=== PATIENT | male | born 1945 | race Caucasian/White ===

== ENCOUNTER 2020-03-12 09:43 | Emergency (ER) | payer MEDICARE, SELFPAY ==
--- NOTE | ~2020-03-12 | XR_ITS ---
EXAMINATION: XR chest 1V portable INDICATION: Shortness of breath, COVID 19 positive TECHNIQUE: Portable AP chest at 1026 hours COMPARISON: 09/08/2007 FINDINGS: There are patchy bilateral airspace opacities, worst in the right upper and lower lung zone s. No pleural effusion or pneumothorax is identified. The cardiomediastinal silhouette is normal. 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 IMPRESSION: 1. Patchy bilateral airspace opacities in a distribution consistent with COVID 19 pneumonia. Reviewed, dictated and finalized at location A.
[2020-03-12 09:58] VITALS: BP 143/105; PULSE 70; RESP 20; O2SAT 96
[2020-03-12 10:04] VITALS: PULSE 71
[2020-03-12 10:15] VITALS: BP 128/92; PULSE 75; RESP 20; O2SAT 96
--- NOTE | 2020-03-12 10:15 | ECG_ITS ---
Measurements Intervals [place] Rate: 74 P: 14 [place]: 161 QRS: -19 QRSD: 108 T: 12 QT: 387 QTc: 432 Interpretive Statements SINUS RHYTHM VENTRICULAR PREMATURE COMPLEX VOLTAGE CRITERIA FOR LVH CONSIDER HIGH LATERAL INFARCT, AGE INDETERMINATE BORDERLINE T WAVE ABNORMALITY- INFERIOR LEADS ABNORMAL ECG Electronically Signed On 03-12-2020 13:01:17 CDT by Gus Snyder D.O.
[2020-03-12 10:30] LABS: Basophils Absolute Auto 0.1 K/mm3 (0.0-0.1); Basophils Percent Auto 0.6 % (0.2-1.2); Eosinophils Absolute Auto 0.1 K/mm3 (0-0.3); Hematocrit 48.9 % (42.0-52.0); Hemoglobin 17.3 g/dL (14.0-18.0); Immature Granulocyte Absolute 0.59 K/mm3 (0.00-0.031); Immature Granulocyte Percent A 5.5 % (0-0.5); Lymphocytes Absolute Auto 1.33 K/mm3 (0.9-3.2); Lymphocytes Percent Auto 12.4 % (18.3-44.2); Mean Corpuscular HGB Conc 35.4 g/dl (32-36); Mean Corpuscular Volume 84.9 fl (80-100); Monocytes Absolute Auto 1.8 K/mm3 (0.1-0.6); Monocytes Percent Auto 16.4 % (2.6-8.5); Neutrophils Absolute Auto 6.9 K/mm3 (1.3-6.7); Neutrophils Percent Auto 64.1 % (45.5-73.1); Platelet Count Result 272 k/mm3 (150-375); Red Blood Count 5.76 M/mm3 (4.6-6.20); Red Cell Distribution Width 13.3 % (11.5-14.5); White Blood Count 10.7 K/mm3 (4.5-10.0)
[2020-03-12 10:41] LABS: INR 1.1; Prothrombin Time 14.2 Seconds (11.1-14.7)
[2020-03-12 10:42] LABS: Partial Thromboplastin Time 25.4 SECONDS (22.3-36.8)
[2020-03-12 10:45] LABS: Alanine Aminotransferase 23 U/L (4-50); Albumin Level 3.5 g/dL (3.5-5.1); Alkaline Phosphatase 77 U/L (38-126); Anion Gap 7 mmol/L (8-16); Aspartate Amino Transferase 22 U/L (17-59); Bilirubin,Total 1.1 mg/dL (0.2-1.3); Blood Urea Nitrogen 22 mg/dL (9-20); CRP 0.7 mg/dL (<1.0); Calcium 9.7 mg/dL (8.4-10.2); Carbon Dioxide 25 mmol/L (22-30); Chloride 100 mmol/L (98-107); Estimated CRCL calculation 73 ml/min; Estimated Glomerular Filt Rate > 60; Glucose 193 mg/dL (75-110); Potassium 4.2 mmol/L (3.4-5.0); Sodium 132 mmol/L (137-145)
[2020-03-12 10:51] LABS: Alveolar/Arterial O2 Gradient 36.9 mmHg; Base Excess ABG 1.6 mEq/l (+/-2.0); Fractional Inspired Oxygen 21 %; Methemoglobin ABG 0.3 %THb (0-1.5); Oxygen Content ABG 22.7 %vol (16.0-22.0); Oxygen Saturation ABG 96.1 % (95.0-100.0); Oxyhemoglobin 94.4 % THb (90.0-100.0); PCO2 ABG 32.2 mmHg (35.0-45.0); PO2 ABG 74.3 mmHg (80.0-100.0); PO2 FiO2 Ratio Arterial Blood 3.54 %; Reduced Hemoglobin 4.3 %THb (0-5.0); Total Hemoglobin 17.1 g/dL (12.0-18.0); pH ABG 7.491 (7.350-7.450)
[2020-03-12 10:52] LABS: Device ROOM AIR; Site Drawn LEFT BRACHIAL
[2020-03-12 10:59] VITALS: BP 135/90; PULSE 65; RESP 20; O2SAT 97
[2020-03-12] MEDS: SODIUM CHLORIDE 0.9% IV 1,000 ML 999 ML IV CONT (10:59)
[2020-03-12] MEDS: FAMOTIDINE 20 MG/2 ML VIAL IV PUSH (11:00)
--- NOTE | 2020-03-12 11:00 | ED.SOB ---
HPI - SOB/Dyspnea General Chief Complaint: Shortness of Breath/Dyspnea <DAMON Glass Last Filed: 03/12/20 12:37> Stated Complaint: covid positive on 02/18/2020/ sob <DAMON Glass Last Filed: 03/12/20 12:37> Time Seen by Provider: 03/12/20 10:12 <DAMON Glass Last Filed: 03/12/20 12:37> Source: patient and family <DAMON Glass Last Filed: 03/12/20 12:37> Mode of arrival: ambulatory <DAMON Glass Last Filed: 03/12/20 12:37> Limitations: no limitations <DAMON Glass Last Filed: 03/12/20 12:37> History of Present Illness HPI Narrative: Patient is a 74-year-old male who presents with dyspnea and fatigue patient has been sick for over 10 days with COVID-19 had recent hospitalization was discharged and has been at home on Augmentin and Zithromax and using his inhaler but notes that he continues to have fatigue and dyspnea which worsens with activity. Patient also has sick family members at home <DAMON Glass Last Filed: 03/12/20 12:37> Related Data Home Medications: Home Medications Medication Instructions Recorded Confirmed amoxicillin-pot clavulanate 1 tablet PO Q12H 03/12/20 03/12/20 [Augmentin] azithromycin 250 mg PO DAILY 03/12/20 03/12/20 coenzyme Q10 150 mg PO DAILY 03/12/20 03/12/20 dexamethasone 6 mg PO DAILY 03/12/20 03/12/20 indapamide 2.5 mg PO DAILY 03/12/20 sitagliptin-metformin [Janumet] 1 tablet PO BID 03/12/20 03/12/20 <DAMON Glass Last Filed: 03/12/20 12:37> Allergies/Adverse Reactions: Allergies Allergy/AdvReac Type Severity Reaction Status Date / Time ezetimibe AdvReac Intermediate shortness Verified 03/12/20 10:06 of breath <DAMON Glass Last Filed: 03/12/20 12:37> Review of Systems Review of Systems: All systems reviewed & are unremarkable except as noted in HPI and below <Steven Torres PA-C - Last Filed: 03/12/20 12:37> [facility] Past Medical History Medical History: Medical History (Updated 03/12/20 @ 12:32 by Steven Torres PA-C) Chronic obstructive pulmonary disease, unspecified Hypertensive heart disease Type 2 diabetes mellitus without complications <Steven Torres PA-C - Last Filed: 03/12/20 12:37> Social History Social History: Social History Smoking status: Former smoker Second hand tobacco smoke exposure: No Alcohol intake: never Gender identity (if verbalized by the patient): Male <Steven Torres PA-C - Last Filed: 03/12/20 12:37> Exam Narrative: Exam Narrative: GENERAL: Well-appearing, well-nourished, and in no acute distress. HEAD: Normocephalic, atraumatic. EYES: PERRLA and EOMI. ENT: Nares clear, no rhinorrhea or epistaxis. Mucous membranes moist. Oropharynx without tonsillar hypertrophy exudate or other lesions. NECK: Supple. No adenopathy or masses. CHEST: Clear to auscultation. No respiratory distress. No wheezes rales or rhonchi HEART: Regular rate and rhythm. No murmur heard. Normal peripheral pulses. ABDOMEN: Soft, nontender, nondistended EXTREMITIES: Normal range of motion. No edema. SKIN: Warm, dry, no rash. NEURO: No focal deficits. Alert and oriented x3. PSYCH: Normal mood and affect. <Steven Torres PA-C - Last Filed: 03/12/20 12:37> Course Course Emergency Course: Patient in the room at this time resting comfortably was hydrated given medications patient on exertion had his oximetry go down to 92. Patient's case was discussed with the hospitalist who recommends that this patient does not warrant hospitalization this time given the findings and recommends that the patient be sent home. Patient will be sent home as recommended by the hospitalist service patient was hydrated is noted and given an MDI instruct. <Steven Torres PA-C - Last Filed: 03/12/20 12:37> Consultations Consultati
[2020-03-12 11:03] LABS: Lactic Acid Reflex 1.1 mmol/L (0.7-2.1)
[2020-03-12 12:23] VITALS: BP 125/82; PULSE 78; RESP 20; O2SAT 92
== END 2020-03-12 13:00 | disposition home or self-care (01) ==
PROVIDERS: Emergency Medicine Emergency Medical Services; Emergency Provider Emergency Medicine; PCP Internal Medicine
DX: U07.1 COVID-19 (principal); J12.89 Other viral pneumonia; J44.9 Chronic obstructive pulmonary disease, unspecified; E11.9 Type 2 diabetes mellitus without complications; I11.9 Hypertensive heart disease without heart failure; Z79.84 Long term (current) use of oral hypoglycemic drugs
CPT/HCPCS: 36415; 36600; 71045; 80053; 82375; 82728; 82805; 83050; 83605; 85025; 85610; 85730; 86140; 87040; 93005; 96361; 96374; 96375; 99284; J0131; J7030

== ENCOUNTER 2020-08-04 10:47 | Outpatient (CLI) | payer MEDICARE, SELFPAY ==
--- NOTE | ~2020-08-04 | XR_ITS ---
XR abdomen obstructive series DATE: 08/04/2020 11:00 INDICATION: Abdominal pain TECHNIQUE: Supine and upright AP views COMPARISON: 09/08/2007 CT abdomen pelvis FINDINGS: Diffuse idiopathic skeletal hyperostosis of the thoracic spine. Diffuse osteopenia. Status post cholecystectomy. No visceromegaly is evident. No significant abnormal calcification is noted. No evidence of bowel obstruction or intraperitoneal free air. IMPRESSION: No evidence of bowel obstruction or intraperitoneal free air Reviewed, dictated and finalized at Location A. Reviewed, dictated and finalized at location A. ET COORDINATOR
== END 2020-08-04 10:48 | disposition home or self-care (01) ==
LOC: ANHIMG 10:49
PROVIDERS: Family Provider Internal Medicine; PCP Internal Medicine; Visit Provider Internal Medicine
DX: R10.9 Unspecified abdominal pain (principal)
CPT/HCPCS: 74019

== ENCOUNTER 2021-03-14 10:09 | Outpatient (CLI) | payer MEDICARE, SELFPAY ==
--- NOTE | ~2021-03-14 | CT_ITS ---
EXAMINATION: CTA chest EXAM DATE: 03/14/2021 10:55 INDICATION: Hypertension. Diabetes. TECHNIQUE: Spiral CT angiogram of the chest following intravenous injection of 100 mL Omnipaque 350. Axial, coronal and sagittal images of the chest were reviewed. Coronal maximum intensity pixel imag es of chest reviewed. Maximum intensity projection 3-D reconstructions of the aorta were created by willy cifuentes technologist on dedicated workstation. The dose-length product (DLP) for this examination was 968 .30 mGy-cm. The exposure was tailored according to patient size (auto mA exposure control), and iter ative reconstruction (ASIR) was used as additional dose reduction technique. Correlation is made to [facility] x[facility] 03/12/2020. FINDINGS: Mildly aneurysmal ascending aorta up to 4.6 cm. No dissection. No central pulmonary emboli. Mosaic attenuation, most likely regions of air trapping from small airway disease. Right basilar ate lectasis or scarring and trace pleural effusion. Tracheobronchial tree is patent. There is no medi astinal, hilar or axillary lymphadenopathy. There is no pneumothorax. Heart normal in size. The re is moderate coronary arterial calcification, arterial sclerosis. Hepatic steatosis. Cholecystecto my clips. There is thoracic spondylosis without osteoblastic or osteolytic lesions identified. Patie nt has diffuse idiopathic skeletal hyperostosis (DISH). IMPRESSION: 1. Mildly aneurysmal ascending aorta. 2. Mosaic attenuation probably air trapping. 3. Right basilar subsegmental atelectasis or scarring. 4. Trace right pleural effusion. 5. Hepatic steatosis. Reviewed, dictated and finalized at location A.
[2021-03-14 10:46] LABS: Estimated Glomerular Filt Rate 49
== END 2021-03-14 10:10 | disposition home or self-care (01) ==
PROVIDERS: PCP Nurse Practitioner Family; Visit Provider Internal Medicine Cardiovascular Disease
DX: E11.59 Type 2 diabetes mellitus with other circulatory complications (principal); I10 Essential (primary) hypertension; I71.2 Thoracic aortic aneurysm, without rupture; R91.8 Other nonspecific abnormal finding of lung field; J90 Pleural effusion, not elsewhere classified; K76.0 Fatty (change of) liver, not elsewhere classified
CPT/HCPCS: 71275; Q9967

== ENCOUNTER → 2021-07-26 01:56 | Outpatient (CLI) | payer MEDICARE, SELFPAY ==
[2021-07-26 21:12] LABS: SARS-CoV-2 RNA PCR Negative
== END ==
PROVIDERS: PCP Family Medicine; Visit Provider Family Medicine
DX: J20.9 Acute bronchitis, unspecified (principal); Z20.822 Contact with and (suspected) exposure to COVID-19
CPT/HCPCS: C9803; U0003; U0005

== ENCOUNTER 2022-03-12 09:38 | Outpatient (CLI) | payer MEDICARE, SELFPAY ==
--- NOTE | ~2022-03-12 | CT_ITS ---
EXAMINATION: CTA chest DATE: 03/12/2022 10:38 INDICATION: Thoracic aortic aneurysm without rupture TECHNIQUE: Computed tomographic angiography (CTA) of the chest was performed with 100 mL Omnipque-350 intravenous contrast. Maximum intensity projection 3D-reconstructions of the aorta and other arterie s were constructed by the technologist on a separate workstation. The dose-length product (DLP) was 6 49.15 mGy-cm. Automated exposure control and iterative reconstruction technique were employed. COMPARISON: 03/14/2021 FINDINGS: There is fusiform enlargement of the thoracic aorta which measures 4.3 x 4.2 cm at the leve l of the main pulmonary artery. The ascending aorta measures 3.8 x 3.5 cm at the sinuses of Valsalva. There is no dissection of the thoracic aorta. There is mild dependent atelectasis. No focal airspace opacities are identified. There is a chronic trace right pleural effusion. There is no pneumothorax. No pathologically enlarged thoracic lymph nodes are identified. The heart size is normal. The gallbl adder is surgically absent. The liver is diffusely low in attenuation when compared with the spleen, consistent with hepatic steatosis. There are bridging osteophytes at multiple levels in the spine, co nsistent with diffuse idiopathic skeletal hyperostosis (DISH). IMPRESSION: 1. Stable fusiform enlargement of the thoracic aorta measuring up to 4.3 cm. No dissection. Reviewed, dictated and finalized at location B.
[2022-03-12 10:28] LABS: Estimated Glomerular Filt Rate 49
== END 2022-03-12 09:39 | disposition home or self-care (01) ==
PROVIDERS: PCP Nurse Practitioner Family; Visit Provider Internal Medicine Cardiovascular Disease
DX: I71.2 Thoracic aortic aneurysm, without rupture (principal)
CPT/HCPCS: 71275; Q9967

== ENCOUNTER 2024-04-14 10:00 | Outpatient (CLI) | payer MEDICARE, SELFPAY ==
--- NOTE | ~2024-04-14 | CT_ITS ---
EXAMINATION: CTA chest DATE: 04/14/2024 10:36 INDICATION: Aneurysm of ascending aorta without rupture. TECHNIQUE: Computed tomographic angiography (CTA) of the chest was performed with 100 mL Omnipaque-35 0 intravenous contrast. Automated exposure control and iterative reconstruction technique were employ ed. The dose-length product was 1046.74 mGy-cm. Maximum intensity projection 3D-reconstructions of th e aorta and other arteries were constructed by the technologist on a separate workstation. COMPARISON: CT 03/12/22 FINDINGS: The lungs demonstrate mild atelectasis. There is mild emphysema. There is a stable 4 mm nod ule in right lower lobe, likely benign. There is a 3 mm nodule in left lower lobe, likely benign. The re are a few new nodules in the lungs measuring up to 6 mm in left lower lobe. No pleural effusion. T here is left atrial enlargement of the heart. There are coronary artery calcifications. No pericardia l effusion. Thoracic aorta measures 4.2 cm at the sinuses of Valsalva, 3.2 cm at the sinotubular junc tion, 4.0 cm in the mid ascending aorta, 3.0 cm at the isthmus, and 2.6 cm in the mid descending aort a. There are changes of cholecystectomy. There is cortical thinning of the kidneys. There are cysts i n the kidneys measuring up to 1.5 cm on the right. There are bridging endplate osteophytes at multipl e levels in the spine, consistent with diffuse idiopathic skeletal hyperostosis (DISH). IMPRESSION: 1. Stable ectasia of ascending aorta measuring up to 4.2 cm. 2. New pulmonary nodules measuring up to 6 mm, probably benign. Consider noncontrast low-dose chest C T in 6 months. 3. Mild emphysema. Reviewed, dictated and finalized at location A. IMPRESSION: 1. Stable ectasia of ascending aorta measuring up to 4.2 cm. 2. New pulmonary nodules measuring up to 6 mm, probably benign. Consider noncon trast low-dose chest CT in 6 months. 3. Mild emphysema.
[2024-04-14 10:27] LABS: Estimated Glomerular Filt Rate 49
== END 2024-04-14 10:01 | disposition home or self-care (01) ==
PROVIDERS: PCP Nurse Practitioner Family; Visit Provider Internal Medicine Cardiovascular Disease
DX: I77.819 Aortic ectasia, unspecified site (principal); J43.9 Emphysema, unspecified; R91.8 Other nonspecific abnormal finding of lung field
CPT/HCPCS: 71275; Q9967

== ENCOUNTER 2024-10-29 08:57 | Outpatient (CLI) | payer MEDICARE, SELFPAY ==
--- NOTE | ~2024-10-29 | CT_ITS ---
CT Scan of the Chest without Contrast: Clinical Indication: Pulmonary nodule Technique: Contiguous sections were acquired throughout the chest without intravenous contrast. Dose reduction technique was used on this scan by utilizing automated exposure control and iterative recon struction technique. The dose-length product (DLP) was 595.73 mGy-cm. COMPARISON: 04/14/2024 Findings: There is no evidence of any significant mediastinal, hilar or axillary lymphadenopathy. Coronary paresh ry calcifications are present. There is no evidence of pleural or pericardial effusion. Several subcentimeter left basilar pulmonary nodules are again present, similar to prior exam, larges t measuring 7 mm. There are subcentimeter nodules in the right lower lobe, measuring up to 4 mm. Ther e are areas of mild chronic interstitial change and mild groundglass the opacity bilaterally, similar to prior exam. Images through the upper abdomen reveal no abnormalities. Impression: Stable subcentimeter bibasilar pulmonary nodules, measuring up to 7 mm in diameter. Mild chronic interstitial changes and areas of mild groundglass opacity, essentially stable from prio r exam. Reviewed, dictated and finalized at location M. Impression: Stable subcentimeter bibasilar pulmonary nodules, measuring up to [address] Mild chronic interstitial changes and areas of mild groundglass opacity, essent ially stable from prior exam.
--- OUTSIDE RECORDS SUMMARY | 2024-10-29 09:09 | XMS_ITS | Referral Summary ---
Author Organization [facility] Address [address] [place] [id number] Care Team Providers Care Beauty Operator Name Role Phone Maco Main MD Primary Care Provider [phone] Encounters Date Type Department Care Team Description 10/18/2024 9:45 AM CDT Office Visit [facility] Cardiology [address] [place] [address] Ana Escudero MD History of DVT (deep vein thrombosis) (Primary Dx); Pulmonary nodule; Aneurysm of ascending aorta without rupture; Hypertension associated with diabetes (HCC); Mixed diabetic hyperlipidemia associated with type 2 diabetes mellitus (CMS/HCC) (HCC); Cardiomegaly from Last 3 Months Allergies Active Allergy Reactions Criticality Noted Date Comments Iaxqgke-Yld-Swk Reductase Inhibitors Muscle pain Medium 08/04/2020 Medications albuterol HFA (PROVENTIL HFA,VENTOLIN HFA,PROAIR HFA) 90 mcg/actuation inhaler INL 1 TO 4 PFS PO Q 4 H PRN 05/05/2019 Active rivaroxaban (XARELTO) 10 mg tablet Take 1 tablet (10 mg total) by mouth daily with dinner 02/15/2019 Active SITagliptin-metf ormin (JANUMET) 50-1,000 mg per tablet Take 1 tablet by mouth Active indapamide (LOZOL) 2.5 mg tablet 11/08/2019 Active docosahexaenoic acid-epa 120-180 mg capsule Take 1,000 mg by mouth 2 (two) times a day Active allopurinoL (ZYLOPRIM) 100 mg tablet 04/30/2021 Active ezetimibe (ZETIA) 10 mg tablet 04/16/2021 Active metoprolol XL (TOPROL-XL) 25 mg extended release tablet Take 1 tablet (25 mg total) by mouth daily Active colchicine (COLCRYS) 0.6 mg tablet TAKE 1 TABLET BY MOUTH TWICE DAILY NEEDED FOR GOUT 01/17/2022 Active lisinopriL (PRINIVIL,ZESTRI L) 10 mg tablet TAKE 1 TABLET BY MOUTH DAILY 100 tablet 2 08/12/2023 Active Active Problems Problem Noted Date Diagnosed Date Pulmonary nodule 10/18/2024 History of DVT (deep vein thrombosis) 04/12/2024 Hypertension associated with diabetes 08/04/2020 Tobacco abuse 08/04/2020 Thoracic aortic aneurysm without rupture ([facility]/HC C) 08/04/2020 Cardiomegaly 08/04/2020 Mixed diabetic hyperlipidemi a associated with type 2 diabetes mellitus ([facility]/HCC) 08/04/2020 Statin myopathy 08/04/2020 Social History Tobacco Use Types Packs/Day Years Used Date Smoking Tobacco: Former Smokeless Tobacco: Current Chew Alcohol Use Standard Drinks/Week Comments Yes 0 (1 standard drink = 0.6 oz pur e alcohol) Sex and Gender Information Value Date Recorded Sex Assigned at Not on file Legal 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 Gender Identity Not on file Sexual Orientation Not on file Last Filed Vital Signs Vital Sign Reading Time Taken Comments Blood Pressure 114/70 10/18/2024 9:33 AM CDT Pulse 65 10/18/2024 9:33 AM CDT Temperature 36.6 C (97.8 F) 08/16/2020 1:54 PM TAX CONSULTANT Respiratory Rate - - Oxygen Saturation 97% 10/18/2024 9:33 AM CDT Inhaled Oxygen Concentration - - Weight 108.5 kg (239 lb 4.8 oz) 10/18/2024 9:33 AM CDT Height 182.9 cm (6') 10/18/2024 9:33 AM CDT Body Mass Index 32.45 10/18/2024 9:33 AM CDT Plan of Treatment Not on file Procedures Procedure Name Priority Date/Time Associated Diagnosis Comments POCT LIPID PANEL Routine 04/12/2024 9:15 AM CDT Mixed diabetic hyperlipidemia associated with type 2 diabetes mellitus (CMS/HCC) (HCC) from Last 3 Months or Most Recently Relevant to Health Maintenance Results * POCT lipid panel (04/12/2024 9:15 AM CDT) Cholesterol, POC 182 mg/dL Comment:GLU = 243 HDL, POC 22 mg/dL Triglycerides, POC 226 mg/dL LDL Cholesterol POC 115 mg/dL Chol/HDL Ratio, POC 5.3 Non-HDL Cholesterol, POC 160 mg/dL Cholesterol Total, POC 182 mg/dL Capillary blood 04/12/2024 9 :15 AM CDT us Ana Escudero MD POINT OF CARE TEST O RDERABLES Final Result from Last 3 Months or Most Recently Relevant to Health Maintenance Insurance MEDICARE ADVANTAGE MEDICARE ADVANTAGE Care Teams Beauty Operator Relationship Specialty Start Date End Date Maco Main MD [address] [address] PCP - General Family Medicine 02/15/21
--- OUTSIDE RECORDS SUMMARY | 2024-10-29 09:09 | XMS_ITS | Clinical Summary ---
Author Organization [facility] Address [address] [place] [address] Care Team Providers Care Senior Dynamics Crm Developer Name Role Phone Gonzalo Chen MD Primary Care Provider [phone] Source Comments [facility],non-owned Affiliates and Associated Physician Practices is amultiple site organization consisting of ambulatory clinics and hospital sitesin [place], [place], [place] and [place]. This disclosure is being madepursuant to the Care Everywhere program and may not contain all information available regarding this patient. Last updated 18.[facility] Allergies No known active allergies Medications * Be aware that medications may not be up to date on this document. Alwaysverify current medications with the patient. albuterol HFA (PROVENTIL;VENT ALEXUS;PROAIR) 108 (90 Base) MCG/ACT inhaler Inhale 2 puffs by mouth every 6 hours as needed Active SITagliptin-met FORMIN (JANUMET) 50-1000 MG tabletIndicatio ns:Type 2 Diabetes Mellitus Take 1 tablet by mouth 2 times daily with morning and evening meal Reasons: Type 2 Diabetes Active rivaroxaban (XARELTO) 20 MG tablet Take 1 tablet by mouth daily with dinner Begin taking after 21 days of 15mg tablets twice daily; start taking 20mg tablet once daily 02/15/19 30 tablet 02/15/2019 Active Active Problems Problem Noted Date Diagnosed Date Pulmonary embolus 01/23/2019 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 Encephalopathy 05/03/2015 Immunizations Immunization Administration Dates Next Due PNEUMOCOCCAL PPSV23 05/08/2015 Family History Medical History Relation Name Comments Heart Disease Mother Status: Deceas ed Relation Name Status Comments Mother Social History Tobacco Use Types Packs/Day Years Used Date Smoking Tobacco: Never Smokeless Tobacco: Current Alcohol Use Standard Drinks/Week Comments Yes 5.8 (1 standard drink = 0.6 oz p ure alcohol) Sex and Gender Information Value Date Recorded Sex Assigned at Not on file Legal Sex Male 6:02 PM A/C TECH Gender Identity Not on file Sexual Orientation Not on file Last Filed Vital Signs Vital Sign Reading Time Taken Comments Blood Pressure 117/65 01/25/2019 8:44 AM CDT Pulse 76 01/25/2019 8:44 AM CDT Temperature 36.7 C (98.1 F) 01/25/2019 8:44 AM CDT Respiratory Rate 18 01/25/2019 8:44 AM CDT Oxygen Saturation 97% 01/25/2019 8:44 AM CDT Inhaled Oxygen Concentration - - Weight 117.6 kg (259 lb 3.2 oz) 01/23/2019 6:04 PM CDT Height 182.9 cm (6') 01/23/2019 6:04 PM CDT Body Mass Index 35.15 01/23/2019 6:04 PM CDT Plan of Treatment Health Maintenance Due Date Last Done Comments DTAP/TDAP/TD VACCINES (1 - Tdap) 10/26/1963 ZOSTER VACCINE (1 of 2) 1994 PNEUMOCOCCAL VACCINE 50+ (2 of 2 - PCV) 05/08/2016 05/08/2015 Respiratory Syncytial Virus (RSV) Vaccine Pt: or over 60 yrs (1 - 1-dose 75+ series) 10/26/2019 COVID-19 VACCINE ( - 2023-2 5 season) 2024 DEPRESSION SCREENING 07/07/2024 INFLUENZA VACCINE (Season Ended) 2025 HEPATITIS B VACCINE Aged Out No longe r eligible based on patient's age to complete this topic HIB VACCINE Aged Out No longer eligi ble based on patient's age to complete this topic HPV VACCINE Aged Out No longer eligi ble based on patient's age to complete this topic MENINGOCOCCAL (Group B) VACC INE SHARED DECISION-MAKING Aged Out No longer eligibl e based on patient's age to complete this topic MENINGOCOCCAL GROUPS A/C/Y/W VACCINE Aged Out No longer eligible b ased on patient's age to complete this topic Insurance [facility] Address: [address] [facility] [address] [place] [address] Advance Directives * Full Code (Latest Code Status on File) Date Activated Date Inactivated Comments 01/23/2019 4:31 PM 01/25/2019 1:53 PM Care Teams Senior Dynamics Crm Developer Relationship Specialty Start Date End Date Gonzalo Chen MD [address] [place] [address] PCP - General 05/02/15
--- OUTSIDE RECORDS SUMMARY | 2024-10-29 09:09 | XMS_ITS | Clinical Summary ---
Author Organization [facility] Address [address] [place] [id number] Care Team Providers Care Fiscal Agent Name Role Phone Maco Main MD Primary Care Provider [phone] Allergies Active Allergy Reactions Criticality Noted Date Comments Bqejnfa-Nyd-Dty Reductase Inhibitors Muscle pain Medium 08/04/2020 Medications [...] abuse 08/04/2020 Thoracic aortic aneurysm without rupture (CMS/HC C) 08/04/2020 Cardiomegaly 08/04/2020 Mixed diabetic hyperlipidemi a associated with type 2 diabetes mellitus (CMS/HCC) 08/04/2020 Statin myopathy 08/04/2020 Encounters Date Type Department Care Team Description 10/18/2024 9:45 AM CDT Office Visit [facility] Cardiology [address] [place] [address] Ana Escudero MD History of DVT (deep vein thrombosis) (Primary Dx); Pulmonary nodule; Aneurysm of ascending aorta without rupture; Hypertension associated with diabetes (HCC); Mixed diabetic hyperlipidemia associated with type 2 diabetes mellitus (CMS/HCC) (HCC); Cardiomegaly from Last 3 Months Surgical History Surgery Date Site/Laterality Comments TONSILECTOMY, ADENOIDECTOMY, BILATERAL MYRINGOTOMY AND TUBES HERNIA REPAIR GALLBLADDER SURGERY PORT PLACEMENT CHEST >5 YEARS 05/08/2015 N/A PORT PLACEMENT CHEST >5 YEARS 05/08/2015 N/A Medical History Medical History Date Comments Hypertension Sinusitis Hyperlipidemia DM (diabetes mellitus) (HCC) Cataract Asthma Gout Family History Medical History Relation Name Comments Suicide Completion Father Relation Name Status Comments Father (Age 48) Mother (Age 95) Social History Tobacco Use Types Packs/Day Years Used Date Smoking Tobacco: Former Smokeless Tobacco: Current Chew Alcohol Use Standard Drinks/Week Comments Yes 0 (1 standard drink = 0.6 oz pur e alcohol) Sex and Gender Information Value Date Recorded Sex Assigned at Not on file Legal 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 Gender Identity Not on file Sexual Orientation Not on file Obstetrics History Last Filed Vital Signs Vital Sign Reading Time Taken Comments Blood Pressure 114/70 10/18/2024 9:33 AM CDT Pulse 65 10/18/2024 9:33 AM CDT Temperature 36.6 C (97.8 F) 08/16/2020 1:54 PM SYSTEM CONFIGURATION SPECIALIST Respiratory Rate - - Oxygen Saturation 97% 10/18/2024 9:33 AM CDT Inhaled Oxygen Concentration - - Weight 108.5 kg (239 lb 4.8 oz) 10/18/2024 9:33 AM CDT Height 182.9 cm (6') 10/18/2024 9:33 AM CDT Body Mass Index 32.45 10/18/2024 9:33 AM CDT Plan of Treatment Health Maintenance Due Date Last Done Comments Albumin Creatinine Ratio, Urine 1944 Depression Screening 1944 Fall Risk Assessment 1944 Hepatitis C Screening 1944 eGFR 1944 Dilated Eye Exam 1944 Foot Exam 1944 DTaP/Tdap/Td Vaccine (1 - Tdap) 10/26/1955 Hepatitis B Screening 1962 Zoster Vaccine (1 of 2) 1994 Abdominal Aortic Aneurysm (A AA) Screen 2009 Well Visit 65+ 2009 Pneumococcal vaccine 65+ (2 of 2 - PCV) 05/08/2016 05/08/2015 Hemoglobin A1C 07/27/2019 01/24/2019 Influenza Vaccine (Season Ended) 2025 Lipid Panel 07/29/2025 07/29/2024, 10/0 01/2024, 01/20/2024, Additional history exists Procedures Procedure Name Priority Date/Time Associated Diagnosis [...] Health Maintenance Insurance MEDICARE ADVANTAGE MEDICARE ADVANTAGE Member Subscriber Plan / Payer (Ef fective 2022-Present) Name:Jeff Ley Relation to Subscriber:Self Name:Jeff Ley Payer ID:[id number] (NAIC) Type:UHC MEDICARE Address: [place] [phone] Care Teams Fiscal Agent Relationship Specialty Start Date End Date Maco Main MD [address] [address] PCP - General Family Medicine 02/15/21
--- OUTSIDE RECORDS SUMMARY | 2024-10-29 09:09 | XMS_ITS | Clinical Summary ---
Author Organization [facility] Address Formerly [facility], [facility] [place] [address] Care Team Providers Care Stereotyper Apprentice Name Role Phone Eboni Portillo Primary Care Provider [phone] Allergies No known active allergies Medications lisinopril 40 MG tablet 20 mg. 11/08/2019 Active XARELTO 20 MG Tab tablet 12/16/2019 Active albuterol sulfate HFA 108 (90 Base) MCG/ACT inhaler INL 1 TO 4 PFS PO Q 4 H PRN 05/05/2019 Active SITagliptin-metF ORMIN HCl 50-1000 MG Tab Take 1 tablet by mouth. Active indapamide 2.5 MG tablet 11/08/2019 Active allopurinol 100 MG tablet 12/16/2019 Active fish oil (OMEGA-3 FATTY ACID) 1000 MG Cap capsule Take 1,000 mg by mouth 2 (two) times daily. Active coenzyme Q-10 150 MG capsule Take 150 mg by mouth daily. Active vitamin E 100 UNIT capsule Take 500 Units by mouth daily. Active Active Problems Problem Noted Date Diagnosed Date Pneumonia due to COVID-19 virus 03/05/2020 Encounters Date Type Department Care Team Description 10/18/2024 10:30 AM CDT - 10/18/2024 11:59 PM CDT Hospital Encounter [facility] [address] [place] [address] Peterson Perales MD Discharge Disposition: Home or Self Care (Routine Discharge) 10/18/2024 Travel 10/12/2024 8:10 PM CDT - 10/12/2024 11:59 PM CDT Hospital Encounter [facility] [address] [place] [address] Peterson Perales MD Discharge Disposition: Home or Self Care (Routine Discharge) 10/11/2024 9:04 AM CDT - 10/11/2024 11:59 PM CDT Hospital Encounter [facility] [address] [place] [address] Peterson Perales MD Discharge Disposition: Home or Self Care (Routine Discharge) 10/11/2024 Orders Only [place] [id number] [place] [address] Peterson Perales MD 10/11/2024 Travel 09/09/2024 9:45 AM OIL WELL PERFORATOR OPERATOR Laboratory Only [facility] [address] [place] [address] Salvador Peterson MD 09/09/2024 Travel from Last 3 Months Social History Tobacco Use Types Packs/Day Years Used Date Smoking Tobacco: Never Smokeless Tobacco: Current Chew Alcohol Use Standard Drinks/Week Comments Yes 10 (1 standard drink = 0.6 oz pu re alcohol) Sex and Gender Information Value Date Recorded Sex Assigned at Male 07/29/2024 8:54 AM OIL WELL PERFORATOR OPERATOR Legal Sex Male 11:05 PM CDT Gender Identity Not on file Sexual Orientation Not on file Last Filed Vital Signs Vital Sign Reading Time Taken Comments Blood Pressure 124/74 03/10/2020 9:17 AM CDT Pulse 71 03/10/2020 9:17 AM CDT Temperature 36.4 C (97.5 F) 03/10/2020 9:17 AM CDT Respiratory Rate 20 03/10/2020 3:00 AM CDT Oxygen Saturation 91% 03/10/2020 9:17 AM CDT Inhaled Oxygen Concentration - - Weight 112.1 kg (247 lb 2.2 oz) 03/06/2020 4:26 AM CDT Height 182.9 cm (6') 03/05/2020 11:00 PM CDT Body Mass Index 33.52 03/05/2020 11:00 PM CDT Plan of Treatment Health Maintenance Due Date Last Done Comments Diabetes: Retinopathy Eye Exam 1962 DTaP, Tdap and Td Vaccines (1 - Tdap) 10/26/1963 Zoster Vaccines (1 of 2) 1994 Annual Medicare Wellness Visit 2009 Pneumococcal Vaccine: 50+ Years (2 of 2 - PCV) 05/08/2016 05/08/2015 RSV Immunization or 60+ Years (1 - 1-dose 75+ series) 10/26/2019 COVID-19 Vaccine ( - 2023- season) 2024 Hemoglobin A1C 07/22/2024 01/20/2024, 0 03/2024, 03/06/2020, Additional history exists Kidney Health Evaluation 07/29/2025 07/29/2024 Lipid Panel 07/29/2025 07/29/2024, 100 01/2024, 01/20/2024, Additional history exists Meningococcal B Vaccine Aged Out No l onger eligible based on patient's age to complete this topic Meningococcal Vaccine Aged Out No jeovany tony eligible based on patient's age to complete this topic RSV Immunizations Under 20 Months Aged Out No longer eligible based on patient's age to complete this topic Procedures Procedure Name Priority Date/Time Associated Diagnosis Comments US RETROPERITONEAL LTD Routine 11:13 AM CDT Chronic kidney disease, stage 3a (CMS/HCC) Type 2 diabetes mellitus without complications (CMS/HCC HHS/HCC) Gout, unspecified Mixed hyperlipidemia UREA NITROGEN URINE 24 HR Routine 10/11/2024 8:00 PM CDT Chronic kidney disease, stage 3a (CMS/HCC) Diabetes mellitus without complication (CMS/HCC HHS/HCC) Essential (primary) hypertension Gout, unspecified Mixed hyperlipidemia IMMUNOFIXATION ELECTROPHORESIS URINE 24 HR Routine 10/11/2024 8:00 PM CDT Chronic kidney disease, stage 3a (CMS/HCC) Diabetes mellitus without complication (CMS/HCC HHS/HCC) Essential (primary) hypertension Gout, unspecified Mixed hyperlipidemia URINALYSIS, AUTO, COMPLETE Routine 10/11/2024 10:38 AM CDT Chronic kidney disease, stage 3a (CMS/HCC) Diabetes mellitus without complication (CMS/HCC HHS/HCC) Essential (primary) hypertension Gout, unspecified Mixed hyperlipidemia HC CREATININE OTH SOURCE Routine 10/11/2024 10:38 AM CDT Chronic kidney disease, stage 3a (CMS/HCC) Diabetes mellitus without complication (CMS/HCC HHS/HCC) Essential (primary) hypertension Gout, unspecified Mixed hyperlipidemia URIC ACID BLOOD Routine 10/11/2024 9:19 AM CDT Chronic kidney disease, stage 3a (CMS/HCC) Diabetes mellitus without complication (CMS/HCC HHS/HCC) Essential (primary) hypertension Gout, unspecified Mixed hyperlipidemia PTH - INTACT Routine 10/11/2024 9:19 AM CDT Chronic kidney disease, stage 3a (CMS/HCC) Diabetes mellitus without complication (CMS/HCC HHS/HCC) Essential (primary) hypertension Gout, unspecified Mixed hyperlipidemia SED RATE, ERYTHROCYTE (ESR) Routine 10/11/2024 9:19 AM CDT Chronic kidney disease, stage 3a (CMS/HCC) Diabetes mellitus without complication (CMS/HCC HHS/HCC) Essential (primary) hypertension Gout, unspecified Mixed hyperlipidemia CK (CPK) Routine 10/11/2024 9:19 AM CDT Chronic kidney disease, stage 3a (CMS/HCC) Diabetes mellitus without complication (CMS/HCC HHS/HCC) Essential (primary) hypertension Gout, unspecified Mixed hyperlipidemia KAPPA LAMBDA FREE RATIO (QST) Routine 10/11/2024 9:19 AM CDT Chronic kidney disease, stage 3a (CMS/HCC) Diabetes mellitus without complication (CMS/HCC HHS/HCC) Essential (primary) hypertension Gout, unspecified Mixed hyperlipidemia IMMUNOFIXATION Routine 10/11/2024 9:19 AM CDT Chronic kidney disease, stage 3a (CMS/HCC) Diabetes mellitus without complication (CMS/HCC HHS/HCC) Essential (primary) hypertension Gout, unspecified Mixed hyperlipidemia COMPLEMENT C3 Routine 10/11/2024 9:19 AM CDT Chronic kidney disease, stage 3a (CMS/HCC) Diabetes mellitus without complication (CMS/HCC HHS/HCC) Essential (primary) hypertension Gout, unspecified Mixed hyperlipidemia RENAL FUNCTION PANEL Routine 10/11/2024 9:19 AM CDT Chronic kidney disease, stage 3a (CMS/HCC) Diabetes mellitus without complication (CMS/HCC HHS/HCC) Essential (primary) hypertension Gout, unspecified Mixed hyperlipidemia COMPLEMENT C4 Routine 10/11/2024 9:19 AM CDT Chronic kidney disease, stage 3a (CMS/HCC) Diabetes mellitus without complication (CMS/HCC HHS/HCC) Essential (primary) hypertension Gout, unspecified Mixed hyperlipidemia COMPLEMENT, TOTAL (CH50) Routine 10/11/2024 9:19 AM CDT Chronic kidney disease, stage 3a (CMS/HCC) Diabetes mellitus without complication (CMS/HCC HHS/HCC) Essential (primary) hypertension Gout, unspecified Mixed hyperlipidemia CBC, AUTO, NO DIFF Routine 10/11/2024 9: 19 AM CDT Chronic kidney disease, stage 3a (CMS/HCC) Diabetes mellitus without complication (CMS/HCC HHS/HCC) Essential (primary) hypertension Gout, unspecified Mixed hyperlipidemia ANTINUCLEAR ANTIBODY WI RFX Routine 10/11/2024 9:19 AM CDT Chronic kidney disease, stage 3a (CMS/HCC) Diabetes mellitus without complication (CMS/HCC HHS/HCC) Essential (primary) hypertension Gout, unspecified Mixed hyperlipidemia PROSTATE SPECIFIC ANTIGEN,SCREENING Routine 09/09/2024 9:56 AM OIL WELL PERFORATOR OPERATOR LIPID PANEL Routine 07/29/2024 9:08 AM OIL WELL PERFORATOR OPERATOR Gout, unspecified Mixed hyperlipidemia Type 2 diabetes mellitus with diabetic neuropathy, unspecified (CMS/HCC HHS/HCC) Essential (primary) hypertension HEMOGLOBIN, GLYCOSYLATED Routine 01/20/2024 10:55 AM CDT Encounter for screening for malignant neoplasm of prostate Essential (primary) hypertension Diabetes mellitus without complication Mixed hyperlipidemia from Last 3 Months or Most Recently Relevant to Health Maintenance Results * [employer] (10/18/2024 11:13 AM CDT) Anatomical Region Laterality Modality Renal Ultrasound 10/18/2024 11:5 2 AM CDT Impressions 10/18/2024 11:54 AM CDT IMPRESSION: 1. No evidence of hydronephrosis or focal solid renal mass. Left-sided renal cysts. Ordered By: PETERSON PERALES Interpreted By: Vicky Kline, 10/18/2024 11:52 AM Narrative 10/18/2024 11:54 AM CDT [facility] [address] [place] [phone] IMAGING STUDIES: US RETROPERITONEAL LTD DATE: 10/18/2024 10:47 AM CLINICAL HISTORY: CKD . Diabetes. Gout. Hyperlipidemia. FINDINGS: RIGHT KIDNEY MEASURES 9.7 x 5.9 x 5.9 cm. LEFT KIDNEY MEASURES 10.7 x 5.8 x 4.7 cm. No evidence of hydronephrosis or focal solid renal mass. Renal cortical volume is well-maintained. Simple appearing cortical cyst off the mid and anterior left kidney. Measures 1.3 x 1.0 x 1.2 cm. Simple appearing cortical cyst off the inferior left kidney measuring 9.5 x 9.8 x 12.8 mm. 5.4 mm hyperechoic nonobstructing calculus within mid left renal collecting system. Low volume urinary bladder without focal mass. Bilateral ureteral jets noted. Procedure Note Salvador Kline MD - 10/18/2024 [facility] [address] [place] [phone] IMAGING STUDIES: US RETROPERITONEAL LTD DATE: 10/18/2024 10:47 AM CLINICAL HISTORY: CKD . Diabetes. Gout. Hyperlipidemia. FINDINGS: RIGHT KIDNEY MEASURES 9.7 x 5.9 x 5.9 cm. LEFT KIDNEY MEASURES 10.7 x 5.8 x 4.7 cm. No evidence of hydronephrosis or focal solid renal mass. Renal corticalvolume is well-maintained. Simple appearing cortical cyst off the mid and anterior left kidney.Measures 1.3 x 1.0 x 1.2 cm. Simple appearing cortical cyst off the inferior left kidney measuring 9.5x 9.8 x 12.8 mm. 5.4 mm hyperechoic nonobstructing calculus within mid left renalcollecting system. Low volume urinary bladder without focal mass. Bilateral ureteral jetsnoted. IMPRESSION: 1. No evidence of hydronephrosis or focal solid renal mass. Left-sidedrenal cysts. Ordered By: PETERSON PERALES Interpreted By: Vicky Kline, 10/18/2024 11:52 AM Peterson Perales MD ULTRASOUND Final Result * (ABNORMAL) IMMUNOFIXATION ELECTROPHORESIS URINE 24 HR (10/11/2024 8:00 PM CDT) VOLUME (U) 2,750 10/12/2024 8:15 PM CDT [facility] 24 HR VOL (MLS) 2,750 mL 12:40 AM CDT [facility] CREATININE 24HR (U) 1.52 0.50 - 2.15 g/24 h 10/18/2024 12:40 AM CDT [facility] TOTAL PROTEIN 24HR (U) 138(H) <100 mg/24 h 10/18/2024 12:40 AM CDT [facility] PROTEIN/CREATININE RATIO 91 <100 mg/g creat 10/18/2024 12:40 AM CDT [facility] ALBUMIN ELECTROPHORESIS (U) 100 % 10/18/2024 12:40 AM CDT [facility] URINE ALPHA1 0 % 10/18/2024 12:40 AM CDT [facility] URINE ALPHA2 0 % 10/18/2024 12:40 AM CDT [facility] BETA GLOBULIN (U) 0 % 025 12:40 AM CDT [facility] GAMMA GLOBULIN (U) 0 % 2024 12:40 AM CDT [facility] ABNORMAL PROTEIN BAND 1 (U) REPORT 10/18/2024 12:40 AM CDT [facility] Comment: No M-Ander detected. INTERPRETATION REPORT 10/18/2024 12:40 AM CDT [employer] [facility] Comment: Trace albumin present. Consistent with Normal pattern. Test Performed by Shabnam Lee, [facility], [address] [place] [address] Dejuan Oliver M.D., Ph.D., Director of Laboratories , CLIA [id number] IMMUNOFIXATION URINE REPORT 10/18/2024 12:40 AM CDT [employer] [facility] Comment: Normal pattern. No monoclonal proteins detected. URINE SPECIMEN / Unknown 10/11/2024 8:00 PM CDT us Peterson Perales MD URINE ORDERABLES Final Result Performing Organization Address [facility]/ZIP Co de Phone Number [employer] [place] [id number] [place], [place] , [place] [phone] [facility] [address] [place] [address], [place] [phone] * (ABNORMAL) UREA NITROGEN URINE 24 HR (10/11/2024 8:00 PM CDT) UREA NITROGEN (U) 296 MG/DL 10/13/2024 12:30 PM CDT [facility] Comment:REFERENCE RANGE NOT ESTABLISHED CALC 24HR UREA NITROGEN (U) 8.1(L) 12.0 - 20.0 G/24HR 10/13/2024 12:30 PM CDT [facility] VOLUME (U) 2,750 MLS 10/13/2024 12:07 PM CDT [facility] URINE SPECIMEN / Unknown 10/11/2024 8:00 PM CDT us Peterson Perales MD URINE ORDERABLES Final Result Performing Organization Address City/[facility]/ZIP Co de Phone Number [facility] [address] [place] [address], [place] [phone] * (ABNORMAL) PROTEIN CREAT RATIO URINE (10/11/2024 10:38 AM CDT) PROTEIN URINE TOTAL RANDOM 11.9(H) <10 MG/DL 10/11/2024 10:54 AM CDT [facility] CREATININE (U) 83.8 39 - 259 MG/DL 10/11/2024 10:54 AM CDT [facility] PROTEIN/CREATIN INE RATIO 0.1 10/11/2024 10:54 AM CDT [facility] URINE SPECIMEN / Unknown 10/11/2024 10:38 AM CDT Peterson Perales MD URINE ORDERABLES Final Result [facility] [address] [place] [address], * URINALYSIS, AUTO, COMPLETE (10/11/2024 10:38 AM CDT) COLOR (U) YELLOW 10/11/2024 10:54 AM CDT [facility] TRANSPARENCY CLEAR 10/11/2024 10:54 AM CDT [facility] SPECIFIC GRAVITY (U) 1.015 1.000 - 1.030 10/11/2024 10:54 AM CDT [facility] U PH 6.0 5.0 - 9.0 10/11/2024 10:54 AM CDT [facility] LEUKOCYTES (U) NEGATIVE NEGATIVE 10/11/2024 10:54 AM T [facility] NITRITES NEGATIVE NEGATIVE 10/11/2024 10:54 AM CDT [facility] PROTEIN RANDOM (U) NEGATIVE NEGATIVE 10/11/2024 10:54 AM CDT [facility] GLUCOSE (U) NEGATIVE NEGATIVE 10/11/2024 10:54 AM CDT [facility] KETONES MG/DL (U) NEGATIVE NEGATIVE 10/11/2024 10:54 AM CDT [facility] BILIRUBIN (U) NEGATIVE NEGATIVE 10/11/2024 10:54 AM CDT [facility] BLOOD (U) NEGATIVE NEGATIVE 10/11/2024 10:54 AM CDT [facility] WBC/HPF NONE SEEN 0 - 5 /HPF 10/11/2024 10:54 AM CDT [facility] RBC/HPF NONE SEEN 0 - 5 /HPF 10/11/2024 10:54 AM CDT [facility] EPI/HPF RARE /HPF 10/11/2024 10:54 AM CDT [facility] URINE SPECIMEN OBTAINED BY CLEAN CATCH PROCEDURE / Unknown 10/11/2024 10:38 AM CDT Peterson Perales MD URINE ORDERABLES Final Result Performing Organization Address City/State/[facility] Co de Phone Number [facility] [address] [place] [address], * ANTINUCLEAR ANTIBODY WI RFX (DAVID) (10/11/2024 9:19 AM CDT) DAVID 0.4 10/12/2024 2:31 PM CDT [facility] Comment: NEGATIVE: <0.7 RATIO DAVID PROFILE AND TITER NOT PERFORMED THE DAVID SCREEN TESTS FOR THE FOLLOWING ANTIBODIES BY EIA: SSA1 (RO), SSB1 (LA), LIM, SCL70, JO1, CENTROMERE, ADVERTISING DISPATCH CLERK HISTONE MUST BE ORDERED SEPARATELY DNA (DS) ANTIBODY 1.2 IU/ML 025 2:31 PM CDT [facility] Comment: NEGATIVE: <10 IU/mL EQUIVOCAL: 10 to 15 IU/mL POSITIVE: >15 IU/mL THIS QUANTITATIVE ASSAY IS CALIBRATED TO THE [employer]'S WO/80 STANDARD. THE LEVEL OF dsDNA AUTOANTIBODY GERERALLY CORRELATES WITH THE LEVEL OF DISEASE ACTIVITY IN SYSTEMIC LUPUS ERYTHMATOSUS 10/11/2024 9:19 AM CDT Peterson Perales MD LABORATORY Final Result [facility] [address] [place] [address], [id number] * (ABNORMAL) KAPPA LAMBDA FREE RATIO (QST) (10/11/2024 9:19 AM CDT) KAPPA FREE LIGHT CHAIN 40.5(H) 3.3 - 19.4 mg/L 10/13/2024 10:46 AM CDT [facility] LAMBDA FREE LIGHT CHAIN 34.0(H) 5.7 - 26.3 mg/L 10/13/2024 10:46 AM CDT [employer] MARYDLCJACOB LLY KAPPA/LAMBDA FREE 1.19 0.26 - 1.65 10/13/2024 10:46 AM CDT [facility] Comment: Free kappa/lambda ratio in serum of normal individuals is 0.26-1.65. Excess production of free kappa or lambda chains can alter the ratio. Monoclonal free light chains are found in the serum of patients with multiple myeloma, Waldenstrom's macroglobulinemia, mu-heavy chain disease, primary amyloidosis, light chain deposition disease, monoclonal gammopathy of undetermined significance, and lymphoproliferative disorders. Measurement of free light chain concen- tration in serum is useful for diagnosis, prognosis, monitoring disease activity and following response to therapy of these disorders. Test Performed by [facility], [facility], [address] [place] [address] Dejuan Oliver M.D., Ph.D., Director of Laboratories , CLIA [id number] 10/11/2024 9:19 AM CDT us Peterson Perales MD LABORATORY Final Result Performing Organization Address [facility]/ZIP Co de Phone Number [facility] [address] [place], [place] , [place] [phone] * COMPLEMENT C4 (10/11/2024 9:19 AM CDT) COMPLEMENT C4 24 15 - 53 mg/dL 10/14/2024 11:46 AM CDT [employer] [facility] Comment: Test Performed by [facility], [facility], [address] [place], [place] Dejuan Oliver M.D., Ph.D., Director of Laboratories , [facility] [id number] 10/11/2024 9:19 AM CDT Peterson Perales MD LABORATORY Final Result Performing Organization Address City/[facility] Co de Phone Number [employer] [facility] [address] [place], [place] , [place] [phone] * COMPLEMENT C3 (10/11/2024 9:19 AM CDT) COMPLEMENT C3 122.0 90.0 - 180.0 MG/DL 10/12/2024 12:20 PM CDT [facility] 10/11/2024 9:19 AM CDT us Peterson Perales MD LABORATORY Final Result [facility] [address] [place] [address], [id number] * PTH - INTACT (10/11/2024 9:19 AM CDT) PTH INTACT 73.5 18.4 - 80.1 PG/ML 10/11/2024 3:11 PM CDT [facility] 10/11/2024 9:19 AM CDT Peterson Perales MD LABORATORY Final Result [facility] [address] [place] [address], [place] [phone] * (ABNORMAL) RENAL FUNCTION PANEL (10/11/2024 9:19 AM CDT) Pathologist [facility] [place] GLUCOSE 149(H) 70 - 99 MG/DL 10/11/2024 10:00 AM CDT [facility] BUN 15 7 - 18 MG/DL 10/11/2024 10:00 AM CDT [facility] CREATININE S/P/B 1.31(H) 0.7 - 1.3 MG/DL 10/11/2024 10:00 AM T [facility] SODIUM S/P/B 130(L) 136 - 145 MMOL/L 10/11/2024 10:00 AM T [facility] POTASSIUM S/P/B 4.0 3.5 - 5.1 MMOL/L 10/11/2024 10:00 AM [facility] CHLORIDE S/P/B 94(L) 100 - 108 MMOL/L 10/11/2024 10:00 AM T [facility] CO2 29.4 21 - 32 MMOL/L 10/11/2024 10:00 AM T [facility] CALCIUM S/P/B 9.8 8.5 - 10.1 MG/DL 10/11/2024 10:00 AM [facility] ALBUMIN S/P/B 3.4 3.4 - 5.0 G/DL 10/11/2024 10:00 AM T [facility] PHOSPHORUS 2.9 2.5 - 4.9 MG/DL 10/11/2024 10:00 AM CDT [facility] ANION GAP 6.6 5 - 15 MMOL/L 10/11/2024 10:00 AM CDT [facility] BUN CREATININE RATIO 11.5 6 - 26 10/11/2024 10:00 AM CDT [facility] GFR ESTIMATE 55(L) >90 ML/MIN/1.7 3 M2 10/11/2024 10:00 AM CDT [facility] Comment: NOTE: eGFR is not calculated for patients <18 years of age. This is an estimated GFR calculation using the new CKD EPI creatinine equation without race and so does not require a correction factor for race. This estimated GFR should not be used for calculating drug doses. 10/11/2024 9:19 AM CDT us Peterson Perales MD LABORATORY Final Result Performing Organization Address City/[facility]/ZIP Co de Phone Number [facility] [address] [place] [address], [place] [phone] * SED RATE, ERYTHROCYTE (ESR) (10/11/2024 9:19 AM CDT) ESR 6 0 - 20 MM/HR 10/11/2024 9:47 AM CDT [facility] 10/11/2024 9:19 AM CDT us Peterson Perales MD LABORATORY Final Result [facility] [address] [place] [address], [place] [phone] * IMMUNOFIXATION (10/11/2024 9:19 AM CDT) IMMUNOFIXATION SERUM REPORT 10/13/2024 5:49 PM CDT [employer] [facility] Comment: Normal pattern. No monoclonal proteins detected. Test Performed by [facility], [address] [place] [address] Dejuan Oliver M.D., Ph.D., Director of Laboratories , CLIA [id number] 10/11/2024 9:19 AM CDT us Peterson Perales MD LABORATORY Final Result Performing Organization Address [facility] Co de Phone Number [place] [address] [place], [place] , [place] [phone] * (ABNORMAL) COMPLEMENT, TOTAL (CH50) (10/11/2024 9:19 AM CDT) Pathologist [facility] COMPLEMENT CH50 >60(H) 31 - 60 U/mL 10/14/2024 8:17 PM CDT [employer] [facility] Comment: Test Performed by [facility], [address] [place] [address] Dejuan Oliver M.D., Ph.D., Director of Laboratories , CLIA [id number] 10/11/2024 9:19 AM CDT us Peterson Perales MD LABORATORY Final Result Performing Organization Address [facility] Co de Phone Number [facility] [address] [place], [place] , [place] [phone] * (ABNORMAL) CBC, AUTO, NO DIFF (10/11/2024 9:19 AM CDT) Pathologist [facility] [place] WBC 8.56 4.4 - 11.0 x10'3/uL 10/11/2024 9:47 AM CDT [facility] RBC 5.56 4.50 - 5.90 x10'6/uL 10/11/2024 9:47 AM CDT [facility] HGB 16.6 14.0 - 17.5 G/DL 10/11/2024 9:47 AM CDT [facility] HCT 47.4 41.5 - 50.4 % 10/11/2024 9:47 AM CDT [facility] MCV 85.3 80.0 - 96.0 FL 10/11/2024 9:47 AM CDT [facility] MCH 29.9 26.5 - 31.4 PG 10/11/2024 9:47 AM CDT [facility] MCHC 35.0(H) 31.9 - 34.8 G/DL 10/11/2024 9:47 AM CDT [facility] RDW 13.4 12.3 - 14.3 % 10/11/2024 9:47 AM CDT [facility] PLT 206 151 - 353 x10'3/uL 10/11/2024 9:47 AM CDT [facility] MPV 9.5(L) 9.7 - 11.9 FL 10/11/2024 9:47 AM CDT [facility] 10/11/2024 9:19 AM CDT Peterson Perales MD LABORATORY Final Result [facility] [address] [place] [address], * (ABNORMAL) CK (CPK) (10/11/2024 9:19 AM CDT) CPK 31(L) 39 - 308 U/L 10/11/2024 10:00 AM CDT [facility] 10/11/2024 9:19 AM CDT us Peterson Perales MD LABORATORY Final Result Performing Organization Address City/[facility]/ZIP Co de Phone Number [facility] [address] [place] [address], * URIC ACID BLOOD (10/11/2024 9:19 AM CDT) URIC ACID 6.2 3.5 - 7.2 MG/DL 10/11/2024 10:00 AM CDT [facility] 10/11/2024 9:19 AM CDT us Peterson Perales MD LABORATORY Final Result Performing Organization Address [facility] Co de Phone Number [facility] [address] [place] [address], * (ABNORMAL) PROSTATE SPECIFIC ANTIGEN,SCREENING (09/09/2024 9:56 AM OIL WELL PERFORATOR OPERATOR) PSA 4.03(H) <4.00 NG/ML 09/09/2024 10:46 AM OIL WELL PERFORATOR OPERATOR [facility] Comment: Test was performed using the Siemens method. Results obtained with other assay methods or kits cannot be used interchangeably with results obtained by the Siemens method. 09/09/2024 9:56 AM OIL WELL PERFORATOR OPERATOR us Salvador Peterson MD LABORATORY Final Result Performing Organization Address [facility]/ZIP Co de Phone Number [facility] [address] [place] [address], [place] [phone] * (ABNORMAL) LIPID PANEL (07/29/2024 9:08 AM OIL WELL PERFORATOR OPERATOR) CHOLESTEROL 171 <200.0 MG/DL 07/29/2024 10:38 AM OIL WELL PERFORATOR OPERATOR [facility] TRIGLYCERIDES 207(H) <150 MG/DL 07/29/2024 10:38 AM [facility] HDL 37(L) >40.0 MG/DL 07/29/2024 10:38 AM [facility] LDL (CALCULATED) 93 <100 MG/DL 07/29/2024 10:38 AM [facility] NON HDL CHOLESTEROL 134(H) <130 MG/DL 07/29/2024 10:38 AM [facility] CHOL/HDL RATIO 4.6(H) 0.0 - 4.5 07/29/2024 10:38 AM [facility] VLDL CALCULATION 41 5 - 55 MG/DL 07/29/2024 10:38 AM [facility] LIPID INTERPRETATION 07/29/2024 10:38 AM [facility] Comment: [facility]ENS[facility] REPORT RECOMMENDATIONS: ADULT CHILD LOW RISK: CHOLESTEROL <200 <170 TRIGLYCERIDE <150 --- HDL >=60 --- LDL <100 <110 BORDERLINE: CHOLESTEROL 200-239 170-199 TRIGLYCERIDE 150-199 --- HDL 40-59 --- LDL 100-159 110-129 HIGH RISK: CHOLESTEROL >=240 >=200 TRIGLYCERIDE >=200 --- HDL <40 --- LDL >=160 >=130 07/29/2024 9:08 AM OIL WELL PERFORATOR OPERATOR us [facility] Final Result [facility] [address] [place] [address], * (ABNORMAL) HEMOGLOBIN, GLYCOSYLATED (01/20/2024 10:55 AM CDT) HGB A1C 8.5(H) <5.7 % 01/20/2024 1:13 PM CDT [facility] Comment: INCREASED RISK OF DIABETES <5.7% NON-DIABETES 5.7-6.4% INCREASED RISK FOR FUTURE DIABETES > OR = 6.5 CONSISTENT WITH DIABETES STANDARDS OF MEDICAL CARE IN DIABETES-2010 DIABETES CARE, 33(SUPP 1): S1-S61,2010 ESTIMATED AVG GLUCOSE 197 mg/dL 01/20/2024 1:13 PM CDT [facility] 01/20/2024 10:5 5 AM CDT us E[facility]i [facility] Final Result [facility] [address] [place] [address], from Last 3 Months or Most Recently Relevant to Health Maintenance Additional Health Concerns Infection Onset Date 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
== END 2024-10-29 08:58 | disposition home or self-care (01) ==
LOC: ANHIMG 08:58
PROVIDERS: PCP Nurse Practitioner Family; Visit Provider Internal Medicine Cardiovascular Disease
DX: R91.8 Other nonspecific abnormal finding of lung field (principal); J84.9 Interstitial pulmonary disease, unspecified
CPT/HCPCS: 71250